=== PATIENT | female | born 1980 | race Caucasian/White ===

== ENCOUNTER → 2023-09-05 14:02 | Outpatient (REF) | payer OTHER, SELFPAY | LOC: HWWDC 14:02 | PROVIDERS: ATTENDING PHYSICIAN Internal Medicine; FAMILY PHYSICIAN Student in an Organized Health Care Education/Training Program | DX: Z12.31 Encounter for screening mammogram for malignant neoplasm of breast (principal) | CPT/HCPCS: 77063; 77067 ==

== ENCOUNTER → 2023-09-13 09:04 | Outpatient (REF) | payer OTHER, SELFPAY | LOC: WDC 09:04 | PROVIDERS: ATTENDING PHYSICIAN Internal Medicine | DX: R92.8 Other abnormal and inconclusive findings on diagnostic imaging of breast (principal) | CPT/HCPCS: 76642; 77065 ==